=== PATIENT | female | born 1965 | race Caucasian/White ===

== ENCOUNTER 2021-01-23 16:50 | Emergency (ER) | payer OTHER ==
[2021-01-23] MEDS ORDERED: Ketorolac Tromethamine 60 MG/2 ML VIAL ONE (17:32)
[2021-01-23] MEDS ORDERED: predniSONE 20 MG TAB ONE (18:11)
== END 2021-01-23 18:16 | disposition home or self-care (01) ==
LOC: MADERS 16:50
DX: S39.012A Strain of muscle, fascia and tendon of lower back, initial encounter (principal); S70.02XA Contusion of left hip, initial encounter; G35 Multiple sclerosis; Z87.891 Personal history of nicotine dependence; Z87.442 Personal history of urinary calculi; Z87.39 Personal history of other diseases of the musculoskeletal system and connective tissue; Z79.899 Other long term (current) drug therapy; W18.30XA Fall on same level, unspecified, initial encounter
CPT/HCPCS: 72100; 96372; J1885; J7512

== ENCOUNTER 2023-05-25 10:04 | Emergency (ER) | payer BC, OTHER | END 2023-05-25 11:29 | disposition home or self-care (01) | LOC: MADERS 10:04 | DX: J02.9 Acute pharyngitis, unspecified (principal); M32.9 Systemic lupus erythematosus, unspecified; G35 Multiple sclerosis; G47.00 Insomnia, unspecified; K21.9 Gastro-esophageal reflux disease without esophagitis; Z20.822 Contact with and (suspected) exposure to COVID-19; Z87.891 Personal history of nicotine dependence; Z79.899 Other long term (current) drug therapy | CPT/HCPCS: 87081; 87430; 87635; 87804; 87807; 99283 ==

== ENCOUNTER 2024-07-13 16:26 | Emergency (ER) | payer BC, OTHER ==
[2024-07-13] MEDS ORDERED: Dexamethasone 10 MG/ML VIAL ONE (17:20)
== END 2024-07-13 18:16 | disposition home or self-care (01) ==
LOC: MADERS 16:26
DX: J06.9 Acute upper respiratory infection, unspecified (principal); I10 Essential (primary) hypertension; Z87.891 Personal history of nicotine dependence
CPT/HCPCS: 87400; 87426; 96372; 99283; J1100